=== PATIENT | female | born 1990 | race African-American/Black ===

== ENCOUNTER 2018-11-06 04:26 | Inpatient (IN) | payer OTHER, MEDICAID ==
[~2018-11-06] VITALS: Ht 172.7 cm; Wt 87.2 kg
[2018-11-06] MEDS ORDERED: PREN1TAB13 PO (05:59)
[2018-11-06 07:08] VITALS: Ht 172.7 cm; Wt 87.2 kg
[2018-11-06] MEDS ORDERED: IBUPROFEN 600 MG TAB PO PRN (09:00)
[2018-11-06] MEDS ORDERED: MISOPROSTOL 200 MCG TAB PR PRN ×2 (09:00→20:30)
[2018-11-06] MEDS ORDERED: OXYTOCIN 30 UNITS/LR 500 ML IV PRN ×2 (09:00→20:30)
[2018-11-06] MEDS ORDERED: LIDOCAINE 1% (MPF) 30 ML INJ INJ PRN (09:00)
[2018-11-06] MEDS ORDERED: METHYLERGONOVINE 0.2 MG INJ IM PRN ×2 (09:00→20:30)
[2018-11-06] MEDS ORDERED: CARBOPROST 250 MCG INJ IM PRN ×2 (09:00→20:30)
[2018-11-06] MEDS ORDERED: OXYTOCIN 30 UNITS/LR 500 ML IV SCH ×4 (09:00→20:01)
[2018-11-06] MEDS ORDERED: BUTORPHANOL 2 MG INJ IV PRN (09:00)
[2018-11-06] MEDS: LACTATED RINGER'S 1,000 ML IV SCH ×3 (09:03→18:25)
[2018-11-06] MEDS ORDERED: LACTATED RINGER'S 1,000 ML IV PRN (15:36)
[2018-11-06] MEDS ORDERED: FENTAnyl 2MCG/ML-ROPIV 0.2% 100 ML ONE (16:17)
--- NOTE | 2018-11-06 16:19 | PREAC ---
Date/Time of Note Date/Time of Note DATE: 11/06/18 TIME: 16:18 Anesthesia Eval and Record Evaluation Time Pre-Procedure Interview DATE: 11/06/18 TIME: 16:18 Age 28 Sex female NPO: 8 hrs Preoperative diagnosis iup at 41 weeks Planned procedure labor epidural Past Medical History Past Medical History: None Surgery & Anesthesia Issues No known issue Meds Anticoagulation: No Beta Rosita within 24 hr: No Reason Beta Rosita not given: Pt. not on B-Rosita Reported Medications Pnv95/Ferrous Fumarate/FA ( Vitamins Tablet) 1 Each Tablet, 1 EACH PO, TAB 11/06/18 Current Medications Lactated Ringer's 1,000 ml @ 125 mls/hr Q8H IV Last administered on 11/06/18at 13:48; Admin Dose 125 MLS/HR; Start 11/06/18 at 08:47 Butorphanol Tartrate (Stadol) 2 mg Q2H PRN IV .PAIN SCALE 6-10; Start 11/06/18 at 09:00 Lidocaine (Xylocaine 1% (Mpf)) 30 ml ONCE PRN INJ .EPISIOTOMY; Start 11/06/18 at 09:00 Oxytocin/Lactated Ringer's 500 ml @ 500 mls/hr ONCE POST IV ; Start 11/06/18 at 09:00 Oxytocin/Lactated Ringer's 500 ml @ 125 mls/hr POST IV ; Start 11/06/18 at 09:00 Ibuprofen (Motrin) 600 mg ONCE PRN PO .PAIN 1-5; Start 11/06/18 at 09:00 Oxytocin/Lactated Ringer's 500 ml @ 0 mls/hr ONCE PRN IV .VAGINAL BLEEDING; Start 11/06/18 at 09:00 Methylergonovine Maleate (Methergine) 0.2 mg ONCE PRN IM .VAGINAL BLEEDING; Start 11/06/18 at 09:00 Carboprost Tromethamine (Hemabate) 250 mcg ONCE PRN IM .VAGINAL BLEEDING; Start 11/06/18 at 09:00 Misoprostol (Cytotec) 1,000 mcg ONCE PRN NM .VAGINAL BLEEDING; Start 11/06/18 at 09:00 Oxytocin/Lactated Ringer's 500 ml @ 0 mls/hr FOR AUGMENTATION IV Last administered on 11/06/18at 11:23; Admin Dose 1 MLS/HR; Start 11/06/18 at 11:00 Lactated Ringer's 1,000 ml @ 2,000 mls/hr Q30M PRN IV .ANESTHESIA Last administered on 11/06/18at 15:40; Admin Dose 2,000 MLS/HR; Start 11/06/18 at 15:36 Meds reviewed: Yes Allergies Coded Allergies: tree nut (Verified Allergy, Unknown, 11/06/18) Allergies Reviewed: Yes Labs/Studies Labs Reviewed: Reviewed by anesthesiologist Result Diagram: 11/06/18 0808 Laboratory Tests 11/06/18 08:08 Blood Bank Test 11/06/18 10:18 Antibody Screen NEGATIVE Blood Type AB POSITIVE Rh Immune Globulin Candidate NO test: Positive Pre-procedure Exam Airway: Adequate mouth opening, Adequate thyromental dist Mallampati: Mallampati II Teeth: Normal Lung: Normal Heart: Normal ASA Physical Status ASA physical status: 2 Emergency: None Planned Anesthetic Neuraxial: Epidural Planned Pain Management Parenteral pain med Pre-operative Attestations Prior to commencing anesthesia and surgery, the patient was re-evaluated, there was verification of: *The patient's identity *The results of appropriate recent lab work and preoperative vital signs *The above evaluation not changing prior to induction *Anesthetic plan, risk benefits, alternative and complications discussed with patient/family; questions answered; patient/family understands, accepts and wishes to proceed. KAYLEE MOSES November 06, 2018 16:19
[2018-11-06] MEDS ORDERED: ZOLPIDEM 5 MG TAB PO PRN (16:30)
[2018-11-06] MEDS ORDERED: NALOXONE (0.4 MG/ML) INJ IV PRN (16:30)
[2018-11-06] MEDS ORDERED: ONDANSETRON 4 MG INJ IV PRN (16:30)
[2018-11-06] MEDS ORDERED: FENTAnyl 2MCG/ML-ROPIV 0.2% 100 ML BAG EPI SCH (16:30)
[2018-11-06] MEDS ORDERED: DIPHENHYDRAMINE 50 MG INJ IV PRN (16:30)
--- NOTE | 2018-11-06 16:59 | PAC ---
Date/Time of Note Date/Time of Note DATE: 11/06/18 TIME: 16:59 Post-Anesthesia Notes Post-Anesthesia Note Last documented vital signs bp 115/67 te,p 97.9 O2 sat 98% Activity: WNL Respiratory function: WNL Cardiovascular function: WNL Mental status: Baseline Pain reasonably controlled: Yes Hydration appropriate: Yes Nausea/Vomiting absent: Yes KAYLEE MOSES November 06, 2018 16:59
--- NOTE | 2018-11-06 19:52 | LDN ---
Date/Time of Note Date/Time of Note DATE: 11/06/18 TIME: 19:50 Delivery Summary over 2 pushes of one contraction of a viable baby girl weighing 2875 grams or 6# 5 oz, 18.25" long, and with Apgars of 9/9. Weeks of Gestation 41w 2d Placenta Delivered: Spontaneously Meconium: none Episiotomy: No Perineal laceration: 1 Laceration repair: 1st degree perineal laceration repaired with 2-0 chromic. Anesthesia type: Epidural Estimated blood loss: 150 Sponge & Needle done & correct: Yes All needle counts correct: Yes Any foreign bodies felt in the: No (vagina) Delivery Information Sex Infant Sex: female Apgars 1 Minute: 9 5 Minute: 9 Suctioning Nose & mouth suctioned at noris: Yes Delee suction performed: No Umbilical Cord Umbilical cord with: 3 Vessels Cord presentations: no nuchal cord Cord Blood was obtained: Yes Mother & Baby Disposition Disposition Mom & Baby to Maternity; Good: Yes Baby to NICU: No WHIT PARKS MD November 06, 2018 19:52
--- NOTE | 2018-11-06 19:58 | HP ---
Date/Time of Note Date/Time of Note DATE: 11/06/18 TIME: 19:52 OB - History Hx of Present Free Text/Dictation 28 y.o. G1 with an IUP at 41w 2d came in the morning in early labor with contractions q 5 to 7 minutes and an initial exam of 50%/1-2 cm. She walked initially as she wasn't sure if she wanted to stay and then she opted to stay and was augmented with pitocin. Estimated Due Date: October 28, 2018 : 1 Para: 0 Care: Good Care Ultrasounds: Normal mid trimester US Obstetrical Complications: None Medical Complications: None Past Family/Social History * Past Medical, Surgical, Family and Obstetric Histories reviewed from chart. Blood Type: AB+ Rubella: immune RPR/VDRL: Negative GBS Status: Negative HBsAG: Negative OB Admission Exam Vital Signs Vital Signs Normotensive, afebrile. Physical Exam HEENT: WNL Heart: Rhythm Normal Abdomen: WNL Extremities: Normal Reflexes: Normal Cervical Dilatation: 2cm Effacement: 50% Station: -2 Membranes: Intact Amniotic Fluid: Clear Heart Rate: 140's Accelerations: Accelerations Present Decelerations: No Decelerations Varibility: Moderate Intensity: Moderate Last 72 hours Lab Results CBC & BMP 11/06/18 08:08 OB Assessment/Plan Reason for admission: other (early labor/postdates) Plan: Expectant Management Other plan: Augmentation with pitocin. WHIT PARKS MD November 06, 2018 19:58
[2018-11-06] MEDS ORDERED: LACTATED RINGER'S 1,000 ML IV* SCH (20:01)
[2018-11-06] MEDS ORDERED: HYDROCODONE/APAP (5/325) TAB PO PRN (20:30)
[2018-11-06] MEDS ORDERED: BENZOCAINE 20% 56 ML SPRAY TOP PRN (20:30)
[2018-11-06] MEDS ORDERED: LANOLIN HPA 1 PKT TOP PRN (20:30)
[2018-11-06 21:00] VITALS: BP 114/56; PULSE 70; RESP 16
[2018-11-07] MEDS: IBUPROFEN 600 MG TAB PO SCH ×5 (00:06→23:39)
[2018-11-07 03:47] VITALS: BP 112/56; PULSE 68; RESP 17
[2018-11-07 07:40] VITALS: BP 109/65; PULSE 69; RESP 18
[2018-11-07 12:05] VITALS: BP 107/59; PULSE 67; RESP 20
[2018-11-07 16:00] VITALS: BP 119/72; PULSE 74; RESP 18
[2018-11-07 20:00] VITALS: BP 98/58; PULSE 74; RESP 20
[2018-11-08 04:34] VITALS: BP 118/66; PULSE 72; RESP 20
[2018-11-08] MEDS: IBUPROFEN 600 MG TAB PO SCH ×3 (05:55→18:00)
[2018-11-08 08:00] VITALS: BP 110/72; RESP 18
[2018-11-08] MEDS ORDERED: DIPHTH/TET/ACEL PERTUSS (ADULT) 0.5 ML VIAL IM* ONE (09:00)
[2018-11-08 16:03] VITALS: BP 116/56; PULSE 74; RESP 18
--- NOTE | 2018-11-08 19:51 | PD.PPDC ---
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
--- NOTE | 2018-11-08 19:53 | DS ---
Date/Time of Note Date/Time of Note DATE: 11/08/18 TIME: 19:53 Obstetrical Discharge Record Final Diagnosis Final Diagnosis: Term delivered Vaginal Delivery Obstetrical Delivery: Spontaneous Complications Augmentation: Yes Induction: No Condition on Discharge Physical Assessment Last Vitals: T=97.8 BP 116/59 Voiding: Yes Bowel Movement: Yes Breast: Soft, non-tender Fundus: Firm Calf Tenderness: No Patient Condition: Good WHIT PARKS MD November 08, 2018 19:53
--- NOTE | 2018-11-09 21:11 | DELSUM ---
Delivery Summary A-C Datetime Report Generated by CPN: 11/09/2018 21:11 DELIVERY PERSONNEL Tank Assembler: Mika, Celena MATERNAL INFORMATION Delivery Anesthesia: Epidural Medications in Delivery: PITOCIN Delivery QBL (ml): 150 Placenta Cultured: No Maternal Complications: None LABOR SUMMARY EDC: 10/28/2018 00:00 No. Babies in Womb: 1 Attempted: No Labor Anesthesia: Epidural LABOR INFORMATION Reason for Induction: Postterm Onset of Labor: 11/06/2018 09:00 Complete Dilatation: 11/06/2018 19:12 Oxytocin: Augmentation Group B Beta Strep: Negative Antibiotics # of Doses: 0 Steroids Given: None Reason Steroids Not Administered: Not Applicable MEMBRANES Membranes Rupture Method: Spontaneous Rupture of Membranes: 11/06/2018 19:03 Length of Rupture (hr): 0.35 Amniotic Fluid Color: Light Meconium Amniotic Fluid Amount: Moderate Amniotic Fluid Odor: None STAGES OF LABOR Stage 1 hr: 10 Stage 1 min: 12 Stage 2 hr: 0 Stage 2 min: 12 Stage 3 hr: 0 Stage 3 min: 4 Total Time in Labor hr: 10 Total Time in Labor min: 28 VAGINAL DELIVERY Episiotomy: None Laceration Extension: First Degree Laceration Type: Perineal Laceration Repair: Yes Initial Vag Sponge Count: 10 Final Vag Sponge Count: 10 Initial Vag Sharps Count: 1 Final Vag Sharps Count: 2 Sponge Count Correct: Yes; Vaginal Sweep Performed Sharps Count Correct: Yes BABY A INFORMATION Delivery Date/Time: 11/06/2018 19:24 Method of Delivery: Vaginal Born in Route : No : N/A Forceps: N/A Vacuum Extraction: N/A Shoulder Dystocia : N/A SHOULDER DYSTOCIA BABY A Infant Delivery Date/Time: 11/06/2018 19:24 PRESENTATION/POSITION BABY A Presentation: Cephalic Cephalic Presentation: Vertex Vertex Position: Left Occipital Anterior Breech Presentation: N/A PLACENTA INFORMATION BABY A Placenta Delivery Time : 11/06/2018 19:28 Placenta Method of Delivery: Spontaneous Placenta Status: Delivered SCORES BABY A Heart Rate 1 min: >100 bpm Resp Effort 1 min: Good Cry Reflex Irritability 1 min: Cough/Sneeze/Pulls Away Muscle Tone 1 min: Active Motion Color 1 min: Body [place], Extremit Blue Resuscitation Effort 1 min: Tactile Stimulation SCORE 1 MIN: 9 Heart Rate 5 min: >100 bpm Resp Effort 5 min: Good Cry Reflex Irritability 5 min: Cough/Sneeze/Pulls Away Muscle Tone 5 min: Active Motion Color 5 min: Body [place], Extremit Blue Resuscitation Effort 5 min: Tactile Stimulation SCORE 5 MIN: 9 INFORMATION BABY A Gestational Age at Delivery: 41.2 Gestational Status: Late Term- 41- 41.6 Weeks Outcome : Liveborn Condition : Stable Infant Sex: Female IDENTIFICATION/MEDS BABY A ID Band Number: [id number] ID Band Location: Right Leg; Left Arm Sensor Applied: Yes Sensor Number: [id number] Sensor Location : Cord Clamp Vitamin K Given : Not Given Erythromycin Given: Not Given WEIGHT/LENGTH BABY A Infant Birthweight (gm): 2875 Weight (lb): 6 Infant Weight (oz): 5 Length (in): 18.25 Infant Length (cm): 46.36 CORD INFORMATION BABY A No. Cord Vessels: 3 Nuchal Cord : N/A Cord Blood Taken: Yes Suction: Mouth; Nose ASSESSMENT BABY A Infant Complications: Extended Bradycardi; Meconium Physical Findings at Delivery: Within Normal Limits Respirations: Appears Normal Batch Weigher/ALS Called : Yes Infant Care By: FRANDY LI Transferred To: Remains with Mother
== END 2018-11-08 20:45 | disposition home or self-care (01) | DRG 807 ==
LOC: OBT 04:26 → L-D 04:26 → OBT 07:12 → L-D 07:26 → PP1 21:04
PROVIDERS: ADMIT Obstetrics & Gynecology; ATTEND Obstetrics & Gynecology
PROC: 10E0XZZ Delivery of Products of Conception, External Approach (ICD-10-PCS; principal; 2018-11-06)
DX: O48.0 Post-term pregnancy (principal); O70.0 First degree perineal laceration during delivery; Z37.0 Single live birth; Z3A.41 41 weeks gestation of pregnancy; Z23 Encounter for immunization
CPT/HCPCS: 62322; 76815; 81001; 85025; 85610; 85730; 86592; 86850; 86900; 86901; 87340; 99464; G0463; J2590; J3010; J7120